=== PATIENT | male | born 1960 | race African-American/Black ===

== ENCOUNTER 2018-11-16 10:04 | Emergency (ER) | payer OTHER ==
[2018-11-16] MEDS ORDERED: MORPHINE SULFATE 4 MG/ML SYRINGE IM STA (10:17)
[2018-11-16] MEDS ORDERED: TERBUTALINE 1 MG/ML VIAL SQ STA (10:18)
--- NOTE | 2018-11-16 10:53 | ED ---
General Adult HPI - General Chief complaint: Urogenital Stated complaint: priapism Time Seen by Provider: 11/16/18 10:15 Source: patient, EMS, RN notes reviewed Mode of arrival: EMS Limitations: no limitations - History of Present Illness Initial comments: 58-year-old male presents emergency Department with chief complaint of priapism. Patient states that he woke up and rushing has been there for over 4 hours. Patient states that he was given trazodone at [facility] last night to help him sleep. Patient states he is at [facility] for alcohol withdrawal, alcohol abuse. Patient states she's never had this happen the past. Patient denies any other complaints - Related Data Home Medications Medication Instructions Recorded Confirmed Acetaminophen [Tylenol 8 Hour] 650 mg PO Q4H PRN 11/16/18 11/16/18 Calcium/Magnesium 2 tab PO DAILY 11/16/18 11/16/18 Citalopram Hydrobromide [CeleXA] 40 mg PO DAILY 11/16/18 11/16/18 Ibuprofen [Motrin] 600 mg PO Q6H PRN 11/16/18 11/16/18 Lurasidone [Latuda] 40 mg PO HS 11/16/18 11/16/18 Multivitamins, Thera [Multivitamin 1 tab PO DAILY 11/16/18 11/16/18 (formulary)] Nicotine 21Mg/24Hr Patch [Habitrol 1 patch TRANSDERM DAILY 11/16/18 11/16/18 21Mg/24Hr Patch] Ondansetron HCl [Zofran] 8 mg PO Q6H PRN 11/16/18 11/16/18 traZODone HCL 50 - 150 mg PO HS 11/16/18 11/16/18 Allergies Allergy/AdvReac Type Severity Reaction Status Date / Time trazodone AdvReac PRIAPISM Verified 11/16/18 10:23 Review of Systems ROS Statement: Those systems with pertinent positive or pertinent negative responses have been documented in the HPI. ROS Other: All systems not noted in ROS Statement are negative. Past Medical History Past Medical History: No Reported History History of Any Multi-Drug Resistant Organisms: None Reported Past Surgical History: No Surgical Hx Reported Past Psychological History: Anxiety, Bipolar, Depression Smoking Status: Current every day smoker Past Alcohol Use History: None Reported Past Drug Use History: None Reported General Exam Limitations: no limitations General appearance: alert, in no apparent distress Head exam: Present: atraumatic, normocephalic, normal inspection Neck exam: Present: normal inspection. Absent: tenderness, meningismus, lymphadenopathy Respiratory exam: Present: normal lung sounds bilaterally. Absent: respiratory distress, wheezes, rales, rhonchi, stridor Cardiovascular Exam: Present: regular rate, normal rhythm, normal heart sounds. Absent: systolic murmur, diastolic murmur, rubs, gallop, clicks GI/Abdominal exam: Present: soft, normal bowel sounds. Absent: distended, tenderness, guarding, rebound, rigid exam: Absent: normal inspection (Direction noted, no lesions or sores noted), testicular tenderness, urethral discharge, scrotal swelling Course Vital Signs 11/16/18 11/16/18 10:08 11:15 Temperature 97.8 F 97.1 F L Pulse Rate 78 80 Respiratory 19 19 Rate Blood Pressure 143/104 144/91 O2 Sat by Pulse 98 97 Oximetry Procedures - Penile Procedure Consent Obtained: verbal consent Indication: priapism management Procedural Sedation: No Sedation/Analgesia: opioids Priapism Management: phenylephrine injection Complications: none Patient Tolerated Procedure: well, no complications Medical Decision Making - Medical Decision Making 58-year-old male presents emergency Department for priapism. This is related to trazodone given a [facility] last night. Patient had progression for greater 4 hours. Patient initially was given morphine and terbutaline with no relief of symptoms. Patient was then given an injection of phenylephrine which resolved his symptoms. Patient will be discharged. Patient urinated in the emergency department no difficulty. Disposition Clinical Impression: Priapism Disposition: HOME SELF-CARE Condition: Stable Instructions (If sedation given, give patient instructions): Priapism (ED) Additional Instructions: Please return to the Emergency Department if symptoms worsen or any other concerns. Is patient prescribed a controlled substance at d/c from ED?: No Referrals: None,Stated [Primary Care Provider] - 1-2 days Time of Disposition: 12:40
[2018-11-16] MEDS ORDERED: PHENYLEPHRINE INTRA-CAVE PRN ×3 (11:22→11:32)
[2018-11-16] MEDS ORDERED: NACL SYG INTRA-CAVE PRN (11:22)
[2018-11-16] MEDS ORDERED: SODIUM CHLORIDE 0.9% INTRA-CAVE PRN ×2 (11:32)
[2018-11-16] MEDS ORDERED: PHENYLEPHRINE 1 MG, SODIUM CHLORIDE 0.9% (PF) VIAL 9.9 ML INTRA-CAVE PRN ×2 (11:34)
[2018-11-16 11:47] VITALS: TEMP 97.1
[2018-11-16 13:08] VITALS: BP 142/98; PULSE 87; RESP 18
== END 2018-11-16 13:08 | disposition home or self-care (01) ==
LOC: EC 10:04
DX: N48.30 Priapism, unspecified (principal); F10.239 Alcohol dependence with withdrawal, unspecified; F31.9 Bipolar disorder, unspecified; F41.9 Anxiety disorder, unspecified; F17.200 Nicotine dependence, unspecified, uncomplicated; Z79.899 Other long term (current) drug therapy
CPT/HCPCS: 99284; 96372; J2270; J3105; J2370